=== PATIENT | male | born 1985 | race Caucasian/White ===

== ENCOUNTER 2017-02-08 23:17 | Emergency (ER) | payer SELFPAY ==
[2017-02-08] MEDS ORDERED: TETRACAINE HCL 150 DROP BTL ONE (23:22)
--- NOTE | 2017-02-09 00:05 | ERNOTE ---
ENT HPI Presenting Symptoms: eye pain Time Seen by Provider: 02/08/17 23:57 Source: patient Exam Limitations: no limitations - Immun/Allergies/Home Medications Immunizations: IMMUNIZATION HX Immunizations Up to Date Yes Allergies/Adverse Reactions: Allergies Allergy/AdvReac Type Severity Reaction Status Date / Time morphine AdvReac Verified 02/08/17 23:28 Home Medications: HOME MEDICATIONS NK [No Home Medication] 02/08/17 [Last Taken Unknown] - History of Present Illness Narrative: pt states he was mowing the lawn and got some grass up under his safety glasses. Later his eye began to hurt and water. At one point he thought it was better but then it worsened again Severity: Present: moderate ENT Location: Present: eye (L) Prearrival Treatment: Present: no prearrival treatment Review of Systems - Review of Systems Constitutional: Absent: recent illness EYE: Present: see HPI. Absent: double vision ENT: Absent: ear pain, nose congestion Respiratory: Present: no symptoms reported Cardiology: Present: no symptoms reported Gastrointestinal/Abdominal: Present: no symptoms reported Genitourinary: Present: no symptoms reported Musculoskeletal: Present: no symptoms reported Skin: Absent: rash Neurological: Present: no symptoms reported Endocrine: Present: no symptoms reported Hematologic/Lymphatic: Present: no symptoms reported Psych: Present: no symptoms reported - Patient's Past Medical History Patient History - Medical: No pertinent hx Patient History - Cardiac/Respiratory: No pertinent hx Patient History - Cancer: No Hx of Cancer - Social History Living Situations: home Smoking Status: Current every day smoker Patient requests Smoking Cessation Consult: No Initiate information on Smoking Cessation: No Alcohol Use: none Drug Use: none - Immunizations Immunizations Up to Date: Yes Physical Exam - Physical Exam General Appearance: Present: wd/wn, alert, mild distress Head Exam: Present: normal inspection, no evidence of injury Eye Exam: PERRL: bilateral, EOMI: bilateral, Sclera injection: left, Other: left - corneal FB lateral to pupil, embedded partially into the cornea. Ears, Nose, Throat: Present: normal ENT inspection Neck: Present: normal inspection, nontender Respiratory: Present: no respiratory distress, no accessory muscle use Extremity Exam: Present: normal inspection, normal range of motion Neurological Exam: Present: alert, oriented, normal mood/affect Skin Exam: Present: normal color, warm/dry ED Progress - Vital Signs Vital Signs: Vital Signs 02/08/17 23:23 Temperature 36.9 C Pulse Rate 73 Respiratory 18 Rate Blood Pressure 146/100 O2 Sat by Pulse 97 Oximetry - Progress/Reassessment Chief Complaint: Eye Injury/Trauma Progress:: Improved Progress Note-Subjective: 02/09/17 01:13 Multiple reexamination found no trace of the foreign body. Upper lid turned inside out and lower lid searched with and without cotton tipped applicator Procedures Eye Location: left eye Tetracaine Drops Administered: Yes - 3 Eye - Cornea: Left: examined w/fluorescein, fluorescein dye uptake, corneal ulcer - small shallow ulcer where FB was imbedded Eye FB Removal: removal w/ needle Antibiotic Ointment/Drps Admin: left eye Complications: Pt cady procedure well Location: left eye lateral cornea Departure Clinical Impression: Corneal FB (foreign body) Qualifiers: Encounter type: initial encounter Laterality: left Qualified Code(s): T15.02XA - Foreign body in cornea, left eye, initial encounter - Departure Disposition: Home Follow Up Needed Condition: Good Instructions: Corneal Abrasion, [id number] Additional Instructions: See your regular doctor or an eye doctor in the next 2-3 days to be sure your eye is healed
[2017-02-09] MEDS ORDERED: GENTAMICIN SULFATE 3.5 APPL TUBE ONE (00:42)
[2017-02-09] MEDS ORDERED: GENTAMICIN SULFATE 3.5 APPL TUBE LEFTEYE ONE (01:10)
[2017-02-09] MEDS ORDERED: KETOROLAC TROMETHAMINE 60 MG/2 ML VIAL IM ONE ×2 (01:12→01:13)
[2017-02-09 01:28] VITALS: BP 142/99
== END 2017-02-09 01:22 | disposition home or self-care (01) ==
LOC: ER 23:17
PROC: 08C9XZZ Extirpation of Matter from Left Cornea, External Approach (ICD-10-PCS; principal; 2017-02-08)
DX: T15.02XA Foreign body in cornea, left eye, initial encounter (principal); X58.XXXA Exposure to other specified factors, initial encounter; Y92.096 Garden or yard of other non-institutional residence as the place of occurrence of the external cause

== ENCOUNTER 2017-03-11 23:24 | Emergency (ER) | payer SELFPAY ==
[2017-03-11] MEDS ORDERED: SULFAMETHOXAZOLE/TRIMETHOPRIM 1 TAB TABLET PO ONE (23:55)
--- NOTE | 2017-03-11 23:56 | ERNOTE ---
Upper Extremity HPI - Narrative Date of Service: 03/11/17 - General Extremities Pain Location: elbow: right Time Seen by Provider: 03/11/17 23:41 Source: patient - Immun/Allergies/Home Medications Immunizations: IMMUNIZATION HX Immunizations Up to Date Yes Allergies/Adverse Reactions: Allergies Allergy/AdvReac Type Severity Reaction Status Date / Time morphine AdvReac Verified 02/08/17 23:28 Home Medications: HOME MEDICATIONS Sulfamethoxazole/Trimethoprim [Bactrim Ds] 1 tab PO BID #14 tab 03/11/17 [Last Taken Unknown] - History of Present Illness Narrative: This is a 31-year-old right-hand dominant male who comes to the emergency department with a swollen painful right elbow. The patient states that 10 days ago he cut it while messing around playing football. He treated himself with Neosporin and hydrogen peroxide. It seemed to heal completely fine. He has been working at football practice all week. Today he banged it on something and noticed that it was swollen and tender. The patient denies any fever. He denies any swelling proximal or distal to the elbow. He denies ever having similar in the past. This has definitely come up only within the last 18 hours. No other somatic complaints Occurred: this morning Prior Treament: Reports: other - patient did have a cut to his elbow 10 days ago which healed. Review of Systems - Review of Systems Constitutional: Present: no symptoms reported. Absent: fever, chills, weakness , fatigue EYE: Present: no symptoms reported ENT: Present: no symptoms reported Respiratory: Present: no symptoms reported Cardiology: Present: no symptoms reported Gastrointestinal/Abdominal: Present: no symptoms reported Genitourinary: Present: no symptoms reported Musculoskeletal: Present: See HPI, joint swelling Skin: Present: no symptoms reported Neurological: Present: no symptoms reported Endocrine: Present: no symptoms reported Hematologic/Lymphatic: Present: no symptoms reported Psych: Present: no symptoms reported All Other Systems: All systems neg except as marked - Patient's Past Medical History Patient History - Medical: No pertinent hx Patient History - Cardiac/Respiratory: No pertinent hx Patient History - Cancer: No Hx of Cancer Patient History - Surgical Procedures: Orthopedic Patient History - Other: None - Social History Living Situations: spouse Abuse History: No History of abuse Psych History: No pertinent hx Smoking Status: Current some day smoker Have you smoked in the past 12 months: Yes Do you dip or chew tobacco: No Alcohol Use: occasionally Drug Use: none - Immunizations Immunizations Up to Date: Yes Physical Exam - Physical Exam General Appearance: Present: wd/wn, alert, no apparent distress Head Exam: Present: normal inspection, no evidence of injury Eye Exam: Normal inspection: bilateral, PERRL: bilateral, EOMI: bilateral Ears, Nose, Throat: Present: normal ENT inspection Neck: Present: normal inspection, nontender Respiratory: Present: no respiratory distress, normal breath sounds, no accessory muscle use, chest nontender, lungs clear Cardiovascular/Chest: Present: regular rate, rhythm, no murmur, normal peripheral pulses Gastrointestinal/Abdominal: Present: normal bowel sounds, nontender, soft Back Exam: Present: normal inspection Extremity Exam: Present: other - patient has significant swelling over the olecranon. There is very mild erythema of the skin only over the olecranon. There is no proximal nor distal extension to indicate cellulitis. He has a tiny scar which is well-healed. There is fluctuance present. ED Progress - Vital Signs Patient's Vital Signs:: I have reviewed the patient's vital signs. Vital Signs: Vital Signs 03/11/17 23:29 Temperature 37.2 C Pulse Rate 70 Respiratory 14 Rate Blood Pressure 129/76 O2 Sat by Pulse 98 Oximetry - Progress/Reassessment Chief Complaint: Upper Extremity Injury/Problem Procedures Comments: Under sterile conditions I used a 27-gauge needle to extract a small amount of fluid from the olecranon bursa. This was sent for Gram stain and culture. It has good characteristic appearance of serous joint fluid. Light yellow with a small amount of blood tinged. Definitely no purulence. The fluid was not cloudy. Departure Clinical Impression: Bursitis of right elbow - Departure Disposition: Home self-care Condition: Stable Instructions: Elbow Bursitis, [id number] Additional Instructions: As we discussed it is important that you keep a close eye on this for signs of infection. If he run a fever he must return to the ER immediately. If you notice redness moving up her arm or down your arm he should return immediately. Otherwise what you to follow-up with her family doctor. Prescriptions: Sulfamethoxazole/Trimethoprim [Bactrim Ds] 1 tab PO BID #14 tab
[2017-03-12] MEDS ORDERED: SULFAMETHOXAZOLE/TRIMETHOPRIM 1 TAB TABLET ONE (00:14)
[2017-03-12 00:28] VITALS: BP 126/74
[2017-03-12 01:17] LABS: Body Fluid Appearance TURBID (CLEAR); Body Fluid Color RED (COLORLESS)
[2017-03-12 01:18] LABS: Body Fluid WBC 50 /uL (0-1000)
== END 2017-03-12 00:25 | disposition home or self-care (01) ==
LOC: ER 23:24
PROC: 0R9L3ZZ Drainage of Right Elbow Joint, Percutaneous Approach (ICD-10-PCS; principal; 2017-03-11)
DX: M71.521 Other bursitis, not elsewhere classified, right elbow (principal); F17.200 Nicotine dependence, unspecified, uncomplicated